=== PATIENT | female | born 1930 | race Caucasian/White ===

== ENCOUNTER 2019-01-14 18:20 | Inpatient (IN) ==
--- NOTE | 2019-01-14 19:14 | Diag Imaging Result Doc PS360 ---
EXAM: CHEST-1 VIEW 01/14/2019 HISTORY: PALPIATIONS TECHNIQUE: AP portable at 1902 COMMENT: There is cardiomegaly. There is blunting the costophrenic angles worse on the right side than on 01/12/2019. The inspiration is less optimal. There is ill-defined opacity in the right parahilar region which was not previously present. IMPRESSION: Worsened right pleural effusion. Questionable pneumonia right upper lobe. Electronically signed by Kings Flanagan 01/14/2019 7:12 PM
[2019-01-14 19:25] LABS: BASO# 0.06 X1000 (0.0-0.2); BASO% 0.5 % (0.0-0.8); EOS# 0.18 X1000 (0.0-0.7); EOS% 1.5 % (0.0-10.0); HEMATOCRIT 44.2 % (37.0-47.0); HEMOGLOBIN 14.4 g/dL (12.0-16.0); IMM GRAN# 0.04 X1000 (0.0-0.04); IMM GRAN% 0.3 % (0.0-0.5); LYMPH# 4.23 X1000 (1.2-3.4); LYMPH% 35.6 % (20.5-51.1); MCHC 32.6 g/dL (33-37); MCV 98.2 FL (81-99); MONO# 1.19 X1000 (0.11-0.59); MPV 10.5 FL (7.4-10.4); NEUT# 6.19 X1000 (1.4-6.5); NEUT% 52.1 % (42.2-75.2); PLT 255 X1000 (130-400); RDW 13.3 % (11.5-14.5); WBC 11.89 X1000 (4.8-10.8)
[2019-01-14] MEDS ORDERED: ROCEPHIN 1 GM in NS 50 ML IV ONE (19:25)
[2019-01-14 19:29] LABS: INR 1.03; PROTIME 14.3 Seconds (11.0-16.0); PTT 26.2 Seconds (22.3-41.8)
[2019-01-14] MEDS ORDERED: LOPRESSOR IV ONE (19:29)
[2019-01-14] MEDS ORDERED: ZITHROMAX 500 MG/NS 500 MG/250 ML IVPB IV SCH (19:30)
[2019-01-14 19:42] LABS: ALB/GLOB RATIO 1.8; ALBUMIN 4.1 g/dL (3.5-5.0); CALCIUM 9.9 mg/dL (8.8-10.2); CREATININE 1.1 mg/dL (0.5-0.9); TOTAL BILIRUBIN 0.47 mg/dL (0.20-1.00); TOTAL PROTEIN 6.4 g/dL (6.3-8.3)
[2019-01-14] MEDS ORDERED: NS 1,000 ML IV ONE ×2 (20:06→23:35)
[2019-01-14 20:48] LABS: URINE SOURCE CLEAN CATCH
[2019-01-14 20:51] LABS: BILIRUBIN URINE NEGATIVE (NEGATIVE); BLOOD URINE SMALL (NEGATIVE); COLOR YELLOW; GLUCOSE URINE NEGATIVE (NEGATIVE); KETONE URINE NEGATIVE (NEGATIVE); LEUKOCYTES URINE LARGE (NEGATIVE); NITRITE URINE NEGATIVE (NEGATIVE); PH URINE 5.5; PROTEIN URINE 50 mg/dL (NEGATIVE); TURBIDITY URINE HAZY (CLEAR); UROBILINOGEN URINE NORMAL (NORMAL)
[2019-01-14 20:53] LABS: UR EPITHELIAL CELLS <10 /HPF (<10); URINE BACTERIA NEGATIVE /HPF; URINE WBC TNTC /HPF (<10)
[2019-01-14 21:02] LABS: URINE YEAST NONE SEEN
[2019-01-14] MEDS ORDERED: HALDOL IM ONE (21:15)
[2019-01-14] MEDS ORDERED: ATIVAN IV ONE (22:05)
--- NOTE | 2019-01-14 22:14 | PROVIDER DOCUMENTATION ---
This chart was entered by Sherry Erickson Scribe, acting as scribe for Elvia Ardon MD. HPI-Respiratory General - General Chief Complaint: Shortness of Breath Stated Complaint: SOB Time Seen by Provider: 01/14/19 19:23 Source: patient Allergies/Adverse Reactions: Patient Allergies Allergy/AdvReac Type Severity Reaction Status Date / Time levofloxacin [From Levaquin] Allergy Unknown Verified 01/14/19 19:15 Home Medications: Home Medication List Medication Instructions Recorded Confirmed Last Taken Type Metoprolol [Lopressor] 50 mg PO DAILY 09/30/12 01/15/19 09/29/12 08:00 History Spironolactone 25 mg PO DAILY 09/30/12 01/15/19 09/29/12 08:00 History Aspirin 325 mg PO DAILY 01/15/19 01/15/19 01/14/19 09:00 History Losartan Potassium 1 tab PO DAILY 01/15/19 01/15/19 01/13/19 09:00 History SIMVAstatin [Zocor] 40 mg PO QHS 01/15/19 01/15/19 Unknown History - History of Present Illness-Resp Nature of Presenting Problem: 88yof presents to ED cc SOB for last 2 weeks that is worse today. Pt reports she can't catch her breath and it worsens with movement and laying flat. Pt keenan brooke is at bedside and reports pt saw her PCP/Dr. Robin last Saturday and was taken off her Lasix and then saw her again on Saturday and put back on 1/2 of Lasix. Daughter also reports pt did an Xray and blood work on Saturday. Pt reports she takes an aspirin daily. Pt has hx of NE and AFIB. Quality of Pain: reports: tightness Severity in ED: reports: moderate Onset/Duration: reports: last week Timing: reports: still present, constant, getting worse Cough Quality/Degree: reports: no cough Current Respiratory Medication Therapy: Initiated see nurses note Modifying Factors: worse with: exertion, deep breath, lying down Associated Symptoms: reports: shortness of breath Similar Symptoms Previously?: Yes Recently seen or treated by another doctor?: Yes (PCP/Dr. Robin) Review of Systems - Adult - REVIEW OF SYSTEMS - ADULT Constitutional: reports: see HPI, fatique. denies: chills, fever Eyes: reports: no symptoms reported Ears, Nose, Mouth & Throat: reports: no symptoms reported Cardiovascular: reports: see HPI, edema, irregular heart rate. denies: chest pain, palpitations, syncope Respiratory: reports: see HPI, shortness of breath. denies: cough, wheezing Gastrointestinal: reports: no symptoms reported Genitourinary: reports: no symptoms reported Musculoskeletal: reports: no symptoms reported Integumentary: reports: no symptoms reported Neurological: reports: no symptoms reported Psychiatric: reports: no symptoms reported Endocrine: reports: no symptoms reported Hematologic/Lymphatic: reports: no symptoms reported Allergic/Immunologic: reports: no symptoms reported All Other Systems: Reviewed and Negative Past History - Adult - PAST MEDICAL HISTORY-ADULT Review of Records: reports: Nursing Assessment Review, Medications Reviewed, Social history reviewed & non-contributory. Major Childhood Illnesses: reports: denies history Cardiovascular: reports: denies history Respiratory: reports: denies history Gastrointestinal: reports: denies history Obstetrical/Gynecological: reports: denies history Genitourinary: reports: denies history Musculoskeletal: reports: denies history Neurological: reports: denies history Endocrine/Immune: reports: denies history Other Conditions: reports: denies history - IMMUNIZATION STATUS Childhood Immunizations: See Nurse Assessment Flu Vaccine: See Nurse Assessment - FAMILY HISTORY Family History: reviewed, not pertinent - SOCIAL HISTORY Smoking: quit greater than 1 year Physical Exam-General - PHYSICAL EXAM-ADULT Initial Vital Signs Reviewed: Yes - CONSTITUTIONAL General Appearance: alert, mild distress, thin, other (uncomfortable appearing). negative: obtunded, combative - EYES Eyes: PERRL/EOMI, pink conjunctivae. negative: meningismus, pale conjunctivae, photophobia - HEAD, EARS, NOSE, MOUTH & THROAT HENMT: moist mucous membranes. negative: angioedema - RESPIRATORY Respiratory: chest non-tender, lungs clear, normal breath sounds, respiratory distress (mild), accessory muscle use. negative: crackles, rales, rhonchi, stridor, wheezing - CARDIOVASCULAR Cardiovascular: normal peripheral pulses, no gallop, no JVD, no murmur, tachycardia, irregularly irregular. negative: regular rate, rhythm, no edema, bradycardia - MUSCULOSKELETAL Back Exam: no vertebral tenderness, kyphosis Extremity: no calf tenderness, pedal edema ( to ankle, bilaterally, 1+). negative: erythema - SKIN Integumentary: warm/dry. negative: cyanosis, diaphoresis, jaundice - PSYCHIATRIC Psych/Mental Status: normal mood/affect, normal thought content, normal thought process, oriented x 3. negative: disoriented x 3, anxious, disheveled, depressed affect Progress - PLAN OF CARE/RESULTS Progress/Plan/Lab Results: 01/14/19 19:43 - Final Blood Orders Category Date Time Status Admit - [facility] Routine AdmDCTranf 01/15/19 00:50 Active Activity - Up with Assistance EVERY SHIFT NURSING Care 01/15/19 00:50 Active Apply Mechanical Device [QM] ORDERED Care 01/15/19 00:50 Active Cardiac Monitoring DIRECTED Care 01/14/19 18:33 Completed IV Insertion ORDERED Care 01/14/19 18:33 Completed Intake and Output-Strict Q 8-HR ASSESS Care 01/15/19 00:50 Active Misc. NRSG Communication Order DIRECTED Care 01/14/19 23:49 Completed Notify MD of + Sepsis Screen NOW Care 01/14/19 18:33 Completed Notify Physician As Ordered Care 01/14/19 18:33 Active Nursing- Assist w/ IS as order ORDERED Care 01/15/19 00:50 Active Resuscitation Status Routine Care 01/15/19 00:50 Ordered Saline Loc DIRECTED Care 01/15/19 00:50 Completed Turn, Cough and Deep Breathe Q4HR.AWAKE Care 01/15/19 00:50 Active Update & Confirm Home Medicati ROUTINE Care 01/14/19 23:35 Completed Vital Signs Order Q 4-HR ASSESS Care 01/15/19 00:50 Completed Z-Document. for Tele Applied ORDERED Care 01/15/19 00:51 Completed CHEST-1 VIEW [RAD] Stat Exams 01/14/19 18:33 Completed CTA [CT ANGIOGRM PULMONARY ARTERIES] [CT] Stat Exams 01/14/19 20:25 Completed ABG [RESP] Routine Lab 01/14/19 21:54 Completed BASIC METABOLIC PANEL [CHEM] Routine Lab 01/16/19 05:12 Received BLOOD CULTURE [BLDCUL] Stat Lab 01/14/19 19:43 Results CBC WITH DIFF [HEME] Routine Lab 01/16/19 05:12 Completed CBC WITH DIFF [HEME] Stat Lab 01/14/19 18:51 Completed CK PROFILE [SP CHEM] Stat Lab 01/14/19 18:50 Completed COMPREHENSIVE METABOLIC PANEL [CHEM] Stat Lab 01/14/19 18:50 Completed GRAM STAIN [BLDCUL] Stat Lab 01/14/19 19:43 Results LACTATE, PLASMA [CHEM] Lab 01/14/19 22:12 Completed LACTATE, PLASMA [CHEM] Lab 01/15/19 02:16 Completed LACTATE, PLASMA [CHEM] Q3H Lab 01/14/19 18:50 Completed PROTIME WITH INR [COAG] Stat Lab 01/14/19 18:50 Completed PTT [COAG] Stat Lab 01/14/19 18:50 Completed TROPONIN T Stat Lab 01/14/19 18:50 Completed URINALYSIS W/POSS RFLX CULT [URINALYSIS] Stat Lab 01/14/19 20:14 Completed URINE CULTURE [RM] Routine Lab 01/14/19 21:02 Results URINE MANUAL MICROSCOPIC [URINALYSIS] Stat Lab 01/14/19 20:14 Completed 0.9% Sodium Chloride Inj [Ns] 1,000 ml Med 01/14/19 23:35 Discontinued IV 75 mls/hr 0.9% Sodium Chloride Inj [Ns] 1,000 ml Med 01/14/19 20:06 Discontinued IV 999 mls/hr Acetaminophen [Tylenol] Med 01/15/19 00:50 Active 650 mg PO Q6H PRN PRN Albuterol 2.5MG/Ipratrop 0.5MG [Duoneb (A & A)] Med 01/15/19 01:00 Active 3 ml INH RTQ6H Aspirin Med 01/15/19 09:00 Active 300 mg PO DAILY Azithromycin 500 mg/Ns [Zithromax 500 mg/Ns] Med 01/14/19 19:30 Discontinued 500 mg in 250 ml IV Q24H CefTRIAXONE [Rocephin] 1 gm Med 01/14/19 19:25 Discontinued 0.9% Sodium Chloride Inj [Ns] 50 ml IV NOW CefTRIAXONE [Rocephin] 1 gm Med 01/15/19 09:00 Discontinued 0.9% Sodium Chloride Inj [Ns] 50 ml IV Q24H Furosemide [Lasix] Med 01/15/19 00:53 Discontinued 40 mg IV NOW ONE Haloperidol Lactate [Haldol] Med 01/14/19 21:15 Discontinued 5 mg IM NOW ONE Lorazepam [Ativan] Med 01/14/19 22:05 Discontinued 0.5 mg IV NOW ONE Lorazepam [Ativan] Med 01/15/19 00:49 Active 0.5 mg IV Q4H PRN PRN Metoprolol [Lopressor] Med 01/14/19 19:29 Discontinued 5 mg IV NOW ONE Metoprolol [Lopressor] Med 01/15/19 09:00 Discontinued 50 mg PO DAILY SIMVAstatin [Zocor] Med 01/15/19 21:00 Active 40 mg PO QHS Spironolactone [Aldactone] Med 01/15/19 09:00 Discontinued 25 mg PO DAILY Valsartan [Diovan] Med 01/15/19 09:00 Discontinued 40 mg PO DAILY Aerosol Treatments Routine Ot 01/15/19 00:53 Completed Aerosol Treatments Stat Ot 01/15/19 00:53 Completed Incentive Spirometer Q4HR.AWAKE Ot 01/15/19 01:00 Completed Incentive Spirometer Q4HR.AWAKE Ot 01/15/19 05:00 Completed Incentive Spirometer Q4HR.AWAKE Ot 01/15/19 09:00 Completed Incentive Spirometer Q4HR.AWAKE [facility] 01/15/19 13:00 Completed Incentive Spirometer Q4HR.AWAKE Ot 01/15/19 17:00 Completed Incentive Spirometer Q4HR.AWAKE Ot 01/15/19 21:00 Completed Incentive Spirometer Q4HR.AWAKE [facility] 01/16/19 01:00 Completed Oxygen Device Routine [facility] 01/15/19 00:50 Completed Oxygen Device Stat [facility] 01/14/19 18:33 Completed Telemetry [OM.EQ] Routine Ot 01/15/19 00:50 Active Transfer/Admit Order [TRANSFER] Routine Transfer 01/15/19 00:54 Completed Result Diagrams: 01/16/19 05:12 01/15/19 10:05 - EKG 1 Time of EKG reading by physician:: 18:30 EKG Read and Signed by:: Silver Ferguson EKG Interpretation (*Must complete 3 of following elements*): Abnormal (poor data quality, interuption may be adversely affected) Rate: 117 Rhythm: Atrial Fibrillation with rapid ventricular response [place]: left QRS: LBB - XRAY 1 XRAY Study: Chest Impression: See EMR Report ( IMPRESSION: Worsened right pleural effusion. Questionable pneumonia right upper lobe. Electronically signed by Kings Flanagan 01/14/2019 7:12 PM 01/14/191911 Interpreting Physician: Kings Flanagan MD Dictated Date/Time: 01/14/191910 cc: Silver Ferguson MD; Radha Robin MD) - CONSULTS/PCP/HOSPITALIST Notification #1 *Consult/PCP/Hospitalist*: Dr. Ford Time Discussed: 18:44 Consult Disposition: other (Dr. Ferguson consulted with Dr. Ford and sent the pt EKG for him to [facility]. Dr. Ford stated pt has no STEMI but to admit her to rule out.) #2 Consult: Dr. Daniel Time Discussed: 21:25 Consult Disposition: other (get ABG and call back with results) Departure - Departure Date of Disposition Decision: 01/14/19 Time of Disposition Decision: 20:30 DIAGNOSIS: Pneumonia, Pleural effusion, Respiratory distress, Hyperventilating, Chronic kidney disease Disposition: ADMITTED INPATIENT 09 Certified Medical Emergency: Emergent Condition: Stable - Critical Care Note This patient required my direct & personal management of CC.: Yes Total Time (mins): 65 Critical Care Statement: This patient required my direct personal management to treat or rule out processes, the absence of which, could potentiallly result in sudden, clinically significant life or limb threatening deterioration. Attestation - Physician/ JOVANY Attestation Patient care was provided by Advanced Practice Provider:: No The physician spent face to face time with patient:: Yes Advanced Practice Provider documentation review:: Supervising physician onsite and consulted in the evaluation and care of this patient. The physician did have a face to face encounter with the patient. This chart was documented by the indicated scribe, (Sherry Erickson Scribe) and accurately reflects the services I performed and decisions made by me, Elvia Ardon MD, as attested by the provider's signature.
[2019-01-14 22:23] LABS: ALLEN TEST YES; BE -5.4 mmoll (-3.0-3.0); BLOOD TYPE ARTERIAL; HCO3-(ACT) 20.7 mmoll (20.0-26.0); METHB 1.2 % (0.0-1.5); O2HB 97.3 % (95.0-99.0); PO2(98.6) 192 mmHg (60-100); SAMPLE BLOOD; SAO2 100.2 % (95.0-100.0); THB 12.1 g/dL (11.5-17.4); pH(98.6) 7.53 (7.35-7.45)
[2019-01-14 22:35] LABS: MODALITY CANNULA; PCO2(98.6) 18 mmHg (35-45)
[2019-01-15] MEDS: DUONEB (A & A) INH SCH ×5 (00:01→20:20)
[2019-01-15] MEDS ORDERED: LASIX IV ONE ×2 (00:53→09:41)
--- NOTE | 2019-01-15 01:16 | HISTORY AND PHYSICAL ---
CHIEF COMPLAINT: Shortness of breath. HISTORY OF PRESENT ILLNESS: This is a very anxious 88-year-old female who has had progressive shortness of breath over the last 2 weeks. States that she saw her PCP, Dr. Radha Robin, last Saturday and was taken off her Lasix and saw her again Saturday and was put back on her Lasix. Had x-ray and blood work done Saturday which was presumably normal. At any rate, she today became extremely short of breath, felt as if she could not lie flat. She denied any type of chest pain. However, she is, again, very anxious as if she cannot sit still on examination, very uncomfortable appearing. She has a past medical history that includes atrial fibrillation, hypertension, hyperlipidemia, coronary artery disease. She is status post CABG and AAA repair. Her vital signs are stable and laboratory data is grossly normal other than her hyperventilating and blowing off her CO2 which has resulted in respiratory alkalosis. She is oxygenating well, but again, worrisome that she looks very uncomfortable. Chest x-ray shows a possible right upper lobe pneumonia. There is a worsened right pleural effusion. CTA of the chest is pending to rule out any type of dissection. If this is the case, the patient will need to be transferred to a tertiary center. Otherwise, the patient will be admitted for further evaluation and treatment. PAST MEDICAL HISTORY: See HPI. PREVIOUS SURGICAL HISTORY: CABG, cataract surgery and knee surgery, cholecystectomy and AAA repair. SOCIAL HISTORY: Lives with her daughter. Smoked up until 15 years ago. No alcohol or illicit drugs. FAMILY HISTORY: Father from a CVA at age 76. Mother when the patient was 2 months old so unsure what type of family history she had. They deny any other chronic illnesses within the family. ALLERGIES: Levaquin. HOME MEDICATIONS: A list of home medications could not be reconciled at this time. The nursing staff is trying to work with the family to get a list of home medications. They did not know the names of medications at the time of interview. REVIEW OF SYSTEMS: Fourteen-point review of systems conducted with the patient. She complains of having what she feels like is gas pressure. She feels as if she needs to belch and is short of breath with PND and orthopnea. Also dyspnea on exertion. All other pertinent positives listed above in the HPI. All other systems were reviewed and found to be negative. PHYSICAL EXAMINATION: VITAL SIGNS: Temperature 97.8, pulse 71, blood pressure 141/115, oxygen saturation 98% on 2 L nasal cannula. GENERAL: An 88-year-old female very anxious sitting on the side of the ER stretcher, is alert and oriented times 3, answers all questions appropriately. Family at bedside very supportive. Appears to be in moderate distress. HEENT: Head is atraumatic, normocephalic. Pupils equal, round, reactive to light. Extraocular eye movements intact. Sclerae are anicteric. Conjunctiva is pink. Oral mucosa is moist. NECK: Supple. No JVD. No thyromegaly. Trachea is midline. No cervical lymphadenopathy. CARDIOVASCULAR: S1, S2 appreciated. No murmurs, gallops or rubs. She is having some tachypnea and mild accessory muscle use. She is irregularly irregular. ABDOMEN: Soft, nondistended, nontender. Bowel sounds present all 4 quadrants, normoactive. No pulsatile mass. No organomegaly. EXTREMITIES: No clubbing, cyanosis. One-plus nonpitting edema to bilateral ankles. Two-plus pedal pulses. GENITOURINARY: No bladder distention. Otherwise deferred. NEUROLOGICAL: Alert and oriented times 3. Cranial nerves 2 through 12 grossly intact. DIAGNOSTIC DATA: CTA of the chest is pending. Chest x-ray shows possible right upper lobe pneumonia, worsened right pleural effusion. LABORATORY DATA: WBC 11.89. Hemoglobin 14.4. Hematocrit 44.1. Platelet count 255. ABG: pH 7.53, PCO2 of 18, PO2 of 92, bicarbonate 20.7. This was on 3 L nasal cannula. Sodium 137. Potassium 5. Chloride 99. Carbon dioxide 20. BUN 19. Creatinine 1.1. Glucose 174. Urine: Leukocyte esterase positive, too numerous to count WBCs. ASSESSMENT AND PLAN: 1. Shortness of breath of unknown etiology at this point. CTA to rule out pulmonary embolism or dissection as patient is, again, very uncomfortable seeming. Otherwise may just be a community- acquired pneumonia with a right pleural effusion. She has been treated with Rocephin and azithromycin in the emergency room which will be continued on the medical floor. Obviously, if the patient has any type of dissection she will need to be transferred to a tertiary center. If patient has a pulmonary embolism, she will be treated accordingly. 2. Atrial fibrillation with rapid ventricular rate, now back to normal rate. We will continue patient's metoprolol once dosage is put in. Patient was given IV metoprolol in the emergency room 5 mg which slowed her rate back into the 70s and 80s. 3. Respiratory alkalosis, aware. 4. Nonsymptomatic urinary tract infection. Patient will already be on IV antibiotics. However, this will likely not need treating otherwise. 5. Hypertension and hyperlipidemia. We will restart home medications when appropriate. Further recommendations per patient clinical course. Dictated by ALY Palomares for Zenaida Daniel MD cc: ALY Palomares MD Luis N. Villanueva, MD Sarah E. Styers, MD Independent exam and assessment done by me a bedside together with IRISH MOSS BLEACHER. Discussed plan of care with pt,family and IRISH MOSS BLEACHER. CTA was negative for PE. Will treat pt has COPD exacerbation. Her exam was not impressive except for few scattered wheezes. She appeared to be anxious and did respond to mild anxiolytic treatment. Family requested that she be made a DNR pt. SHAMIKA
[2019-01-15] MEDS: ATIVAN IV PRN (01:57)
[2019-01-15 04:52] LABS: URINE SOURCE CLEAN CATCH
[2019-01-15 05:12] LABS: BILIRUBIN URINE NEGATIVE (NEGATIVE); BLOOD URINE TRACE (NEGATIVE); COLOR YELLOW; GLUCOSE URINE NEGATIVE (NEGATIVE); KETONE URINE NEGATIVE (NEGATIVE); TURBIDITY URINE CLEAR (CLEAR); UR EPITHELIAL CELLS <10 /HPF (<10); URINE BACTERIA NEGATIVE /HPF; URINE RBC <10 /HPF (<10); URINE WBC <10 /HPF (<10)
[2019-01-15 05:13] LABS: LEUKOCYTES URINE NEGATIVE (NEGATIVE); NITRITE URINE NEGATIVE (NEGATIVE); PROTEIN URINE 100 mg/dL (NEGATIVE); UROBILINOGEN URINE NORMAL (NORMAL)
[2019-01-15 05:16] LABS: SP GRAVITY URINE 1.015
--- NOTE | 2019-01-15 06:56 | Diag Imaging Result Doc PS360 ---
EXAM: CT ANGIOGRM PULMONARY ARTERIES 01/14/2019 HISTORY: SOB TECHNIQUE: This exam was performed using automated exposure control, adjustment of mA or kV according to patient size, and/or use of iterative reconstruction technique. COMMENT: 3-D MIPS were performed. There are no previous studies. There is considerable beam hardening artifact as well as some motion. There are no apparent filling defects in the pulmonary arteries. The aorta is not well opacified. There is no evidence of dilatation of the thoracic aorta. The left ventricle and left atrium are enlarged. There are bilateral pleural effusions. There is no evidence of significant adenopathy. There is interstitial opacity present in the right lower lobe peripherally there is a small nodule adjacent to the major fissure in the right lower lobe on image 77 measuring 6 mm in diameter. There are some calcified granulomata in the right lower lobe and calcified hilar nodes on the right. There is emphysematous change in the upper lung zones. There is some ill-defined opacity present in the anterior left upper lobe as well as a lobulated nodule on image 51 measuring 9 mm in diameter. This is not calcified. There is an apparent abdominal aortic graft. There is right nephrolithiasis. There is a fairly large amount of stool seen in the splenic flexure of the colon. There are spondylotic changes in the thoracic spine. IMPRESSION: No evidence of pulmonary emboli. Cardiomegaly. Mild pulmonary edema. Granulomata and nonspecific pulmonary nodules as described above. COPD. Electronically signed by Kings Flanagan 01/15/2019 6:54 AM
--- NOTE | 2019-01-15 08:47 | EKG Report ---
Test Performed on : 01/14/2019 6:28:42 PM Test Reason : ED. NO EKG ORDER FOR MUSE Blood Pressure : / mmHG Vent. Rate : 117 BPM Atrial Rate : 094 BPM P-R Int : 000 ms QRS Dur : 146 ms QT Int : 360 ms P-R-T Axes : 000 -33 129 degrees QTc Int : 502 ms Poor data quality, interpretation may be adversely affected Atrial fibrillation. with rapid ventricular response. with premature ventricular or aberrantly conduc stacey complexes. Left axis deviation Left bundle branch block Abnormal ECG When compared with ECG of 01-JUN-2011 10:10, Atrial fibrillation. has replaced Sinus rhythm. Vent. rate has increased BY 66 BPM Left bundle branch block is now present Criteria for Lateral infarct are no longer present Unconfirmed Result
[2019-01-15] MEDS ORDERED: LOPRESSOR PO SCH (09:00)
[2019-01-15] MEDS ORDERED: DIOVAN PO SCH (09:00)
[2019-01-15] MEDS ORDERED: ALDACTONE PO SCH (09:00)
[2019-01-15] MEDS ORDERED: ROCEPHIN 1 GM in NS 50 ML IV SCH (09:00)
[2019-01-15] MEDS: ASPIRIN PO SCH (09:39)
[2019-01-15 10:13] LABS: HEMATOCRIT 42.1 % (37.0-47.0); HEMOGLOBIN 13.5 g/dL (12.0-16.0); MCH 32.5 PG (27-31); MCHC 32.1 g/dL (33-37); MCV 101.2 FL (81-99); MPV 10.4 FL (7.4-10.4); RBC 4.16 XMIL (4.2-5.4); RDW 13.3 % (11.5-14.5); WBC 19.42 X1000 (4.8-10.8)
[2019-01-15 10:28] LABS: BE -6.1 mmoll (-3.0-3.0); BLOOD TYPE ARTERIAL; HCO3-(ACT) 20.1 mmoll (20.0-26.0); PCO2(98.6) 30 mmHg (35-45); PO2(98.6) 85 mmHg (60-100); SAMPLE BLOOD; THB 14.1 g/dL (11.5-17.4); pH(98.6) 7.38 (7.35-7.45)
[2019-01-15 10:29] LABS: ALLEN TEST NO; METHB 1.3 % (0.0-1.5); O2(CT) 18.9 mL/dL (15.0-23.0); O2HB 95.2 % (95.0-99.0)
[2019-01-15 10:30] LABS: MODALITY CANNULA
[2019-01-15 10:40] LABS: CALCIUM 8.9 mg/dL (8.8-10.2); CREATININE 1.4 mg/dL (0.5-0.9); POTASSIUM 4.1 mmol/L (3.5-5.1)
[2019-01-15] MEDS ORDERED: LANOXIN IV ONE (11:18)
--- NOTE | 2019-01-15 12:42 | EKG Report ---
Test Performed on : 01/15/2019 12:36:11 PM Test Reason : afib Blood Pressure : / mmHG Vent. Rate : 103 BPM Atrial Rate : 103 BPM P-R Int : 000 ms QRS Dur : 154 ms QT Int : 424 ms P-R-T Axes : 000 010 142 degrees QTc Int : 555 ms Wide QRS rhythm. , suspect atrial flutter Left bundle branch block Abnormal ECG When compared with ECG of 14-JAN-2019 18:28, (Unconfirmed) Wide QRS rhythm. , suspect atrial fultter, has replaced Atrial fibrillation. Confirmed by Darrick Colin MD ([id number]) on 01/18/2019 11:44:21 AM
[2019-01-15] MEDS: MAXIPIME 1 GM in NS 50 ML IV SCH ×2 (12:51→20:39)
[2019-01-15] MEDS: ZYVOX 600 MG/D5W 600 MG/300 ML IVPB IV SCH ×2 (15:04→20:39)
--- NOTE | 2019-01-15 15:48 | ECHO REPORT ---
ORDER DATE: 01/15/2019 ECHOCARDIOGRAPHIC MEASUREMENTS: 1. Septal thickness 0.7. 2. Left ventricular internal diameter diastole 5.7. 3. Posterior wall thickness 0.9. 4. Left atrium 5.5. 5. Aortic root 3.4. SUMMARY: 1. Fair quality study. 2. Minimal sclerosis of trileaflet valve demonstrated with adequate aortic valve opening evident. Peak gradient across the aortic valve is 17 mmHg. There is mild aortic regurgitation. Mitral and tricuspid valves are without evidence of structural abnormality, while pulmonic valve is not well visualized. There is moderate mitral regurgitation and moderate tricuspid regurgitation. The estimated systolic PA pressure by Doppler is 50 mmHg suggesting moderate pulmonary hypertension. The aortic root is normal in size. 3. Normal left ventricular dimensions suggested. Estimated left ventricular ejection fraction approximately 40%. There is hypokinesis of the basal inferolateral region left ventricle. There is also paradoxical septal motion probably related to interventricular conduction abnormality. Left atrium is moderate to severely enlarged. The right atrium is mildly enlarged. The right ventricle is normal in size with grossly preserved right ventricular systolic function. 4. No pericardial effusion. 5. Appearance of inferior vena cava suggests normal central venous pressure. cc: MD Augustus Love MD
[2019-01-15 17:01] LABS: TSH 4.08 uIUmL (0.27-4.20)
[2019-01-15 17:16] LABS: FREE T4 1.93 ng/dL (0.93-1.70)
[2019-01-15] MEDS: LOPRESSOR PO SCH (20:38)
[2019-01-15] MEDS: TYLENOL PO PRN (20:38)
[2019-01-15] MEDS: ZOCOR PO SCH (20:39)
[2019-01-16] MEDS: DUONEB (A & A) INH SCH ×4 (03:38→19:33)
[2019-01-16] MEDS: LOPRESSOR PO SCH ×3 (03:57→20:33)
[2019-01-16 03:58] LABS: ALLEN TEST YES; BE 3.2 mmoll (-3.0-3.0); BLOOD TYPE ARTERIAL; HCO3-(ACT) 27.4 mmoll (20.0-26.0); METHB 1.1 % (0.0-1.5); O2HB 97.2 % (95.0-99.0); PCO2(98.6) 37 mmHg (35-45); PO2(98.6) 135 mmHg (60-100); SAMPLE BLOOD; SAO2 99.7 % (95.0-100.0); THB 12.3 g/dL (11.5-17.4); pH(98.6) 7.47 (7.35-7.45)
[2019-01-16 03:59] LABS: MODALITY CANNULA
[2019-01-16 05:55] LABS: BASO# 0.02 X1000 (0.0-0.2); BASO% 0.1 % (0.0-0.8); EOS# 0.04 X1000 (0.0-0.7); EOS% 0.3 % (0.0-10.0); HEMATOCRIT 38.6 % (37.0-47.0); HEMOGLOBIN 12.5 g/dL (12.0-16.0); IMM GRAN# 0.04 X1000 (0.0-0.04); IMM GRAN% 0.3 % (0.0-0.5); LYMPH# 1.51 X1000 (1.2-3.4); LYMPH% 10.9 % (20.5-51.1); MCH 31.9 PG (27-31); MCHC 32.4 g/dL (33-37); MCV 98.5 FL (81-99); MONO# 0.73 X1000 (0.11-0.59); MONO% 5.3 % (1.7-9.3); MPV 10.5 FL (7.4-10.4); NEUT# 11.54 X1000 (1.4-6.5); NEUT% 83.1 % (42.2-75.2); PLT 148 X1000 (130-400); RBC 3.92 XMIL (4.2-5.4); RDW 13.2 % (11.5-14.5); WBC 13.88 X1000 (4.8-10.8)
[2019-01-16 06:35] LABS: CALCIUM 8.6 mg/dL (8.8-10.2); CREATININE 1.7 mg/dL (0.5-0.9); POTASSIUM 3.3 mmol/L (3.5-5.1)
--- NOTE | 2019-01-16 06:59 | CARDIOLOGY CONSULTATION ---
DATE: 01/15/2019 CONSULTATION REQUESTED BY: Hospitalist service. REASON FOR CONSULTATION: Dyspnea, congestive heart failure, tachycardia. HISTORY: Mrs. Ponce is an 88-year-old female, patient of mine who I saw last time in my office on 10/16/2018. At that time, she was complaining of feeling short of breath. That has not changed very much for a while. However, for the past 2 weeks, she noted increasing dyspnea. This got progressively worse 2 days ago, and then the family decided to bring her to the emergency room. Upon presentation they did a chest x-ray that shows worsened right pleural effusion, questionable pneumonia right upper lobe. EKG shows atrial fibrillation with an IVCD or wide complex type of pattern. There is a leftward axis. At any rate, they did a blood gas that showed that her pCO2 was 18, PO2 192, pH 7.53. Her BUN was 19, creatinine 1.1, carbon dioxide 20. Her plasma lactate was 4.6. ProBNP was greater than 35,000. All that suggested that she was in decompensated heart failure. She was admitted for observation. This morning, she is feeling somewhat better. She has been given Lasix. The patient was also in some sort of atrial fibrillation rapid response and that appears to be better. They have put her on ceftriaxone. PAST MEDICAL HISTORY: Positive for coronary bypass surgery in the past. She has severe coronary heart disease. She has COPD. She has hyperlipidemia. She had a normal EKG in the past with sinus bradycardia and left bundle branch block. I do not have any definite indication that she has had any recent ischemic event. Her last stress test is from 2008. Last coronary intervention was in 2007. Last echogram that we have on record from 2012 showed preserved ejection fraction. There has been no recent bout of atrial fibrillation on her. Her history is also positive for hyperlipidemia. PAST SURGICAL HISTORY: 1. Cholecystectomy. 2. Abdominal aneurysm. 3. Knee surgery. SOCIAL HISTORY: She is , retired. She has grown-up children. She lives with her daughter daily. FAMILY HISTORY: Father had a stroke. HOME MEDICATIONS: At the time of this admission included 1. Aspirin 325 daily. 2. Losartan 25 daily. 3. Simvastatin 40 mg daily. 4. Metoprolol 50 mg daily. ALLERGIES: She is allergic to Levaquin. REVIEW OF SYSTEMS: Her functional status has declined sharply over the past few months. She has not been very active at home. She follows with Dr. Radha Robin in [place]. She was seen recently and they made changes to her diuretics because blood pressure was kind of low. Her spironolactone was, I believe, discontinued because of electrolytes being out of range I believe. PHYSICAL EXAMINATION: Vital Signs: At this time, blood pressure is 113/79, pulse 90, temperature 91 degrees, respirations 22. General: She is awake, alert, oriented, in no distress. HEENT: Unremarkable. Chest: Diffusely diminished breath sounds. Heart: Heart sounds are irregularly irregular. No definite gallop or murmur. She has sternal wound scar. Abdomen: Nontender. Extremities: Show decreased pulses. No peripheral edema. Neurologic: Elderly, frail. Her body mass index is 18.6, indicating that she is under nourished. LABORATORY DATA: Her blood work most recent one, white cell count 19,420, hemoglobin 13.5, hematocrit is 42.1. Sodium 141, potassium 4.1, BUN 26, creatinine 1.4. Her C-reactive protein is 17.73. Free T4 is 1.93. TSH 4.08. Question of hyperthyroidism, I guess. She is not taking any thyroid supplements. IMPRESSION: 1. Patient who presents with seemingly decompensation of congestive heart failure. This may relate to development of atrial fibrillation, rapid response. 2. Severe coronary heart disease, previous coronary bypass surgery. 3. Stable angina pectoris pattern in the recent past. 4. Chronic obstructive pulmonary disease. 5. Hyperlipidemia. 6. History of hypertension. 7. Undernourished, low body mass index. 8. General frailty, poor functional status. RECOMMENDATION: We will give gentle diuresis. We will observe. Keep her on low-dose digoxin and probably low-dose beta brigida to try to optimize her rhythm. We will see how she does over the course of the next few days. Given her advanced age and her frail status, I fully agree with a DNR status. We will see how things evolve. We will be following her. cc: Chuy Mcleod MD
--- NOTE | 2019-01-16 07:15 | Diag Imaging Result Doc PS360 ---
EXAM: CHEST-PORTABLE 01/16/2019 HISTORY: dyspnea TECHNIQUE: AP portable at 0619 COMMENT: There is blunting of both costophrenic angles particularly the left. The heart size is enlarged. There is slightly increased interstitial markings. There has been some improvement in the opacification of the right upper lobe since the previous study of 01/14/2019. IMPRESSION: Slightly improved pulmonary edema. Bilateral pleural effusions and cardiomegaly. Electronically signed by Kings Flanagan 01/16/2019 7:13 AM
--- NOTE | 2019-01-16 09:28 | PULMONOLOGY CONSULTATION ---
DATE: 01/16/2019 REQUESTING PHYSICIAN: Dr. Montalvo. REASON FOR CONSULTATION: Respiratory failure. HISTORY OF PRESENT ILLNESS: Ms. Ponce is an 88-year-old white female with a greater than 50 pack year history for tobacco who has been on Lasix for fluid retention by her primary care physician. Lasix was stopped approximately 2 weeks ago after her labs were reviewed. The patient was seen earlier this week and her Lasix was restarted, but her shortness of breath continued to progress. The patient presented to the hospital with increasing shortness of breath. She is noted to be in atrial fibrillation and her oxygen saturation was 71%. She was placed on supplemental oxygen. A CT pulmonary angiogram was performed which reveals significant emphysema, cardiomegaly, trace right pleural effusion. Echocardiogram was performed which revealed moderate pulmonary hypertension, moderate mitral regurgitation, mild aortic regurgitation, and a left ventricular ejection fraction of 40%. PAST MEDICAL HISTORY: 1. Emphysema/chronic obstructive pulmonary disease as indicated on CT scan, although the patient reports she has never been told that she had chronic obstructive pulmonary disease. 2. Status post coronary artery bypass grafting. 3. Atrial fibrillation. 4. Status post cholecystectomy. 5. Status post knee surgery. 6. Hypertension. 7. Dyslipidemia. REVIEW OF SYSTEMS: As noted in HPI. PHYSICAL EXAMINATION: General: Reveals a frail, chronically ill-appearing white female who currently appears comfortable and in no distress. Vital Signs: Blood pressure 114/54, heart rate 98, respiratory rate 18, oxygen saturation 100%. HEENT: Pupils are equal and reactive. Oropharynx is clear. Neck: Supple. Chest: Reveals prolonged expiratory phase with crackles in the lung bases. Cardiac: S1, S2. Irregular rhythm. Abdomen: Soft. Extremities: Reveal trace peripheral edema. LABORATORIES: Not listed in the HPI. Sodium 141, potassium 4.1, chloride 100, bicarbonate 17, BUN 26, creatinine 1.4. ProBNP elevated at 35,000. Arterial blood gas reveals a pH of 7.38, pCO2 of 30, PO2 of 85 with a lactate of 5.2. Urinalysis is negative for UTI this morning but UA yesterday revealed too numerous to white blood cell. IMPRESSION: An 88-year-old with hypoxemic respiratory failure, chronic obstructive pulmonary disease /emphysema, extensive tobacco history, coronary artery disease, small pleural effusion, systolic heart failure, multiple valvular abnormalities, pulmonary edema, marked elevation and proBNP. DISCUSSION: An 88-year-old with respiratory failure most likely due to a combination of both heart failure (systolic and multi valvular) and emphysema/chronic obstructive pulmonary disease. RECOMMENDATIONS: 1. Continue oxygen for hypoxemic respiratory failure. Anticipate the need for oxygen at the time of discharge. 2. Gentle diuresis. 3. Overall prognosis is guarded to poor. Agree with current resuscitation status. cc: Augustus Vivas MD
[2019-01-16] MEDS: ASPIRIN PO SCH (09:36)
[2019-01-16] MEDS: MAXIPIME 1 GM in NS 50 ML IV SCH ×2 (09:36→20:34)
[2019-01-16] MEDS: MEGACE LIQUID PO SCH ×2 (09:37→20:34)
[2019-01-16] MEDS: ZYVOX 600 MG/D5W 600 MG/300 ML IVPB IV SCH ×2 (09:37→20:34)
[2019-01-16] MEDS: XANAX PO PRN ×2 (11:44→21:17)
--- NOTE | 2019-01-16 16:33 | Diag Imaging Result Doc PS360 ---
EXAM: US RENAL 2 (RETROPER) COMPLETE INDICATION: coreen/arf TECHNIQUE: COMPARISON: None. FINDINGS: There is a 2.9 cm simple cyst at the upper pole the left kidney and a 1.3 cm simple cyst at the mid right kidney. The renal cortical echotexture appears mildly increased bilaterally, which is a nonspecific indicator of medical renal disease. No solid renal mass can be identified. There is no evidence of hydronephrosis. The left kidney measures 8 cm and the right kidney measures 10 cm in the greatest longitudinal axes. The left renal cortex measures up to 0.7 cm in the right renal cortex measures up to 0.9 cm in thickness. The urinary bladder was not imaged. IMPRESSION: Mildly increased renal cortical echotexture, which is a nonspecific indicator of medical renal disease. Electronically signed by Indra Hollins 01/16/2019 4:31 PM
[2019-01-16 17:27] LABS: URINE SOURCE CATH
[2019-01-16 17:30] LABS: BILIRUBIN URINE NEGATIVE (NEGATIVE); BLOOD URINE SMALL (NEGATIVE); COLOR YELLOW; GLUCOSE URINE NEGATIVE (NEGATIVE); KETONE URINE NEGATIVE (NEGATIVE); LEUKOCYTES URINE SMALL (NEGATIVE); NITRITE URINE NEGATIVE (NEGATIVE); PH URINE 5.5; PROTEIN URINE 30 mg/dL (NEGATIVE); SP GRAVITY URINE 1.018; TURBIDITY URINE CLEAR (CLEAR); UR EPITHELIAL CELLS <10 /HPF (<10); URINE BACTERIA NEGATIVE /HPF; URINE RBC <10 /HPF (<10); URINE WBC <10 /HPF (<10); UROBILINOGEN URINE NORMAL (NORMAL)
[2019-01-16] MEDS ORDERED: POTASSIUM CHLORIDE 20% LIQUID PO ONE (17:34)
[2019-01-16 17:57] LABS: UR PROT RANDOM 28.7 mg/dL
[2019-01-16 17:58] LABS: UR CREAT RANDOM 66.8 mg/dL (11-20); UR SODIUM < 10 mmoll; UR UREA NITROGEN RANDOM 569 mg/dL
--- NOTE | 2019-01-16 19:31 | CARDIOLOGY PROGRESS NOTE ---
DATE: 01/16/2019 CHIEF COMPLAINT: Shortness of breath and irregular heartbeat. SUBJECTIVE: Ms. Ponce is feeling better today. Her heart rate is better controlled. She is not as tired and weak as she looked yesterday. OBJECTIVE: Vital Signs: Blood pressure 123/66, temperature 97.3, pulse 75, respirations 15. General: She is awake, in no distress. She is elderly and frail looking. Not confused, just weak. HEENT: Unremarkable. Chest: Diminished breath sounds diffusely. Cardiovascular: Heart sounds irregularly irregular. Abdomen: Nontender. Extremities: Show no edema. Neurologic: Follows commands. Moves all 4 extremities. DIAGNOSTIC DATA: Echocardiogram done yesterday shows an ejection fraction of 40%. Chest x-ray done today shows slightly improved pulmonary edema, bilateral pleural effusions, cardiomegaly. Renal ultrasound shows mildly increased renal cortical echotexture, indicative of medical renal disease. LABORATORY DATA: Her sodium is 143, potassium 3.3, BUN 33, creatinine 1.7. IMPRESSION: 1. Patient who has congestive heart failure, systolic and diastolic. 2. Atrial fibrillation with rapid response. 3. Coronary heart disease with previous bypass surgery 4. Frailty, elderly age. 5. Undernourished. 6. History of hypertension. 7. History of hyperlipidemia. 8. Chronic obstructive pulmonary disease. RECOMMENDATIONS: We will continue supportive measures with current diuretics as well as digoxin and beta blockers. Her prognosis is certainly guarded, given her general frailty and her advanced age and multiple medical problems. cc: Chuy Mcleod MD
[2019-01-16] MEDS: ZOCOR PO SCH (20:35)
[2019-01-16] MEDS: ATIVAN IV PRN (22:30)
[2019-01-16] MEDS: TYLENOL PO PRN (22:30)
[2019-01-17] MEDS: DUONEB (A & A) INH SCH ×4 (03:02→19:17)
--- NOTE | 2019-01-17 03:27 | PROGRESS NOTE ---
DATE: 01/16/2019 SUBJECTIVE: The patient is sitting at the edge of the bed. She states that she has no appetite. She also states that she still feels short of breath. OBJECTIVE: Vital Signs: Temperature 97.3 degrees, blood pressure 123/66, heart rate 74, respirations 15, O2 saturation is 100% on 4 L nasal cannula. General: This is a chronically ill- appearing female, sitting at the edge of the bed in no acute distress. Heart: S1, S2 normal. Regular rate and rhythm. Lungs: Diminished breath sounds bilaterally. No wheezing, no rales. Abdomen: Positive bowel sounds. Soft, nontender, nondistended. Extremities: No edema, no cyanosis. Neurologic: The patient is awake and alert. LABORATORY: White blood cell count 13, hemoglobin 12, hematocrit 38, platelets 14,8000. Sodium 143, potassium 3.3, chloride 101, CO2 of 27, BUN 33, creatinine 1.7, glucose 97. ASSESSMENT AND PLAN: 1. Acute hypoxemic respiratory failure. Multifactorial. The patient has severe chronic obstructive pulmonary disease as well as heart failure. 2. Acute on chronic systolic congestive heart failure exacerbation. The patient responded well to diuretic therapy yesterday. We will await further recommendations from the garment supervisor today. 3. Severe chronic obstructive pulmonary disease. Aware. Continue with supplemental oxygen and bronchodilator therapy. 4. Acute kidney injury on chronic kidney disease. Urine studies have been ordered as well as a renal ultrasound. The patient did have exposure to contrast. We will monitor the patient's urine output closely. We will also consult with the theater set production designer. 5. Severe protein-calorie malnutrition. We will start the patient on Megace given her poor appetite. We will also consult with the dietitian. 6. Paroxysmal atrial fibrillation. The patient's heart rate is under better control today. Continue on the current regimen. 7. Anxiety disorder. Continue on Xanax. 8. Disposition. The patient is currently a DNR level 1. We will also consult with Palliative Care to discuss goals of care. cc: Gisselle Montalvo MD
[2019-01-17] MEDS: LOPRESSOR PO SCH ×3 (04:34→20:12)
[2019-01-17] MEDS: XANAX PO PRN ×2 (04:55→22:05)
[2019-01-17 05:55] LABS: HEMATOCRIT 40.1 % (37.0-47.0); HEMOGLOBIN 13.1 g/dL (12.0-16.0); MCH 32.3 PG (27-31); MCHC 32.7 g/dL (33-37); MPV 10.9 FL (7.4-10.4); RBC 4.05 XMIL (4.2-5.4); RDW 13.3 % (11.5-14.5); WBC 11.74 X1000 (4.8-10.8)
[2019-01-17 06:29] LABS: ALB/GLOB RATIO 1.4; ALBUMIN 3.2 g/dL (3.5-5.0); CALCIUM 8.9 mg/dL (8.8-10.2); CREATININE 1.5 mg/dL (0.5-0.9); POTASSIUM 3.7 mmol/L (3.5-5.1); TOTAL BILIRUBIN 0.68 mg/dL (0.20-1.00); TOTAL PROTEIN 5.5 g/dL (6.3-8.3)
--- NOTE | 2019-01-17 09:11 | NEPHROLOGY CONSULTATION ---
DATE: 01/16/2019 REASON FOR ADMISSION: Respiratory failure. REASON FOR CONSULTATION: Acute kidney injury. CONSULTING PHYSICIAN: Dr. Montalvo. HISTORY OF PRESENT ILLNESS: This is an 88-year-old female with a history of emphysema, COPD, who had been on Lasix secondary to fluid retention. Her labs had changed and her Lasix was discontinued. Subsequently, she had greater fluid retention and her Lasix was restarted. She came to the hospital on the day of admission secondary to shortness of breath. She was noted to be in atrial fibrillation and oxygen saturation in the 70s. The patient did have a CT pulmonary angiogram on the that revealed moderate pulmonary hypertension, moderate mitral regurgitation, aortic regurgitation and left ventricular ejection fraction of 40%. At that time, her creatinine was 1.1 since and has slowly risen and today is 1.7. The patient continues to make excellent urine. Her family is at the bedside. The patient has been made a DNR. They are not interested in aggressive measures. The patient states that she has not really been able to eat. She continues to be short of breath but denies any overt pain. PAST MEDICAL HISTORY: Emphysema COPD, coronary artery disease, atrial fibrillation, hypertension, dyslipidemia. PAST SURGICAL HISTORY: 1. CABG. 2. Cataract surgery. 3. Knee surgery. 4. Cholecystectomy. 5. Abdominal aortic aneurysm repair. ALLERGIES: Levaquin. HOME MEDICATIONS: Listed as: 1. Spironolactone. 2. Lopressor. 3. Zocor. 4. Losartan. 5. Aspirin. FAMILY HISTORY: Noncontributory. SOCIAL HISTORY: She lives with her daughter. She smoked into 15 years ago and had a greater than 50 year pack history of smoking prior. No ETOH or illicit drug use. REVIEW OF SYSTEMS: Shortness of breath. PHYSICAL EXAMINATION: Vital Signs: Temperature afebrile, pulse 76, respiratory rate 15, blood pressure 112/52. Intake 1.1 L. Output 2.2 L. General: This is an elderly, chronically ill- appearing female, resting in bed. She is awake and alert. She is able to answer questions. She is hard of hearing. HEENT: Normocephalic, atraumatic. LEAH. Oral mucosa moist. Neck: Supple without JVD. Cardiovascular: Irregularly irregular rhythm. No murmur. Pulmonary: She has equal excursion. She has some crackles bilaterally. Abdomen: Soft with positive bowel sounds. Genitourinary: Tolentino catheter. Extremities: Trace edema. Integumentary: Skin is pale, warm, and dry. She has multiple areas of ecchymoses noted. LABORATORY DATA: WBC of 13.8, hemoglobin 12.5. Sodium 143, potassium 3.3, CO2 21, BUN 33, creatinine 1.7 (1.4, 1.1). ASSESSMENT AND PLAN: Acute kidney injury in the setting of IV contrast. Urine studies and imaging has already been ordered. The patient does not have any absolute indication for intervention other than watchful monitoring at this time until I have the other results back. It is unlikely that even if the patient's renal function does not improve, the family would not want aggressive measures. They have made her DNR level 1 at this time secondary to her poor prognosis from her hypoxemic respiratory failure and decompensated heart failure secondary to her development of atrial fibrillation. Again. Check labs in the morning. Follow closely. Dictated by ALY Ovalle for Norbert Haddad MD cc: Norbert Haddad MD
[2019-01-17] MEDS: ASPIRIN PO SCH (09:36)
[2019-01-17] MEDS: ZYVOX 600 MG/D5W 600 MG/300 ML IVPB IV SCH ×2 (09:37→20:12)
[2019-01-17] MEDS: MEGACE LIQUID PO SCH ×2 (09:37→20:11)
--- NOTE | 2019-01-17 09:48 | PULMONOLOGY PROGRESS NOTE ---
DATE: 01/16/2019 SUBJECTIVE: The patient is awake, alert. She is attempting to get her "afternoon nap." She has no increased work of breathing. OBJECTIVE: Vital Signs: The patient has been afebrile for the last 24 hours. Blood pressure 123/66, heart rate 74, respiratory rate 15, oxygen saturation 100% on 4 L per nasal cannula. HEENT: Pupils are equal and reactive. Oropharynx appears clear. Neck: Supple. Chest: Reveals decreased breath sounds with crackles in the lung bases. Cardiac: S1-S2. Abdomen: Soft. Extremities: Reveal trace edema. LABORATORIES: Arterial blood gas reveals a pH of 7.47, pCO2 of 37, PO2 of 135 with a lactate of 1.0. Sodium 143, potassium 3.3, chloride 101, bicarbonate 27, BUN 33, creatinine 1.7. IMPRESSION: An 88-year-old with: 1. Systolic/multivalvular heart failure. 2. Pulmonary edema with radiographic improvement. 3. Chronic obstructive pulmonary disease. 4. Acute respiratory failure. DISCUSSION: 88-year-old with problems outlined above. She has had some improvement with diuresis, but has had worsening of renal function. PLAN: 1. Continue oxygen for hypoxemic respiratory failure. 2. Gentle diuresis as tolerated. 3. Agree with palliative care consult. 4. Prognosis is guarded to poor. cc: Augustus Vivas MD
[2019-01-17] MEDS: TYLENOL PO PRN ×2 (11:45→17:55)
--- NOTE | 2019-01-17 12:44 | Diag Imaging Result Doc PS360 ---
EXAM: CHEST-PORTABLE INDICATION: pneumonia TECHNIQUE: One view COMPARISON: 01/16/2019 FINDINGS: There are bilateral small pleural effusions. The effusion on the right has increased in size as compared to the previous study. The mild increased interstitial markings are approximately stable. No new consolidation is identified. Cardiac silhouette is stable. IMPRESSION: Increase in size of the small effusion on the right. Stable chest, otherwise. Electronically signed by Indra Hollins 01/17/2019 12:42 PM
--- NOTE | 2019-01-17 21:57 | CARDIOLOGY PROGRESS NOTE ---
DATE: 01/17/2019 SUBJECTIVE: Ms. Ponce denies any issues presently. She is not having any complaints, other than some mild anxiety overnight. She has no pain complaints. No nausea, vomiting. No abdominal pain. OBJECTIVE: The patient is afebrile. Heart rate 61, blood pressure 106/59. General: She is in no acute distress. Cardiovascular: She sounds to be in an irregular rhythm. She has no murmurs. She has no S3. No lower extremity edema. Chest: Sounds clear. She has no increased work of breathing. Abdomen: Soft. She has no abdominal tenderness. PERTINENT DATA: Her BUN and creatinine are 35 and 1.5, which is relatively stable over the last couple of days. Her hematocrit is 40. White count is 11.7. Her AST and ALT are 1230 and 13, respectively, which is markedly elevated compared to previous. Her albumin is 3.2. ASSESSMENT: Ms. Ponce is an 88-year-old female with heart failure as well as atrial fibrillation. She has a significant transaminitis presently. PLAN: I will not make any adjustments in her cardiac medications. She seems to be running a negative fluid balance over the last 24 hours and her hemodynamics seem to be doing well. One of her antibiotics has been changed and is presumed to be the possible cause of the significant transaminitis. cc: Jon Kolb MD
--- NOTE | 2019-01-17 21:58 | NEPHROLOGY PROGRESS NOTE ---
DATE: 01/17/2019 SUBJECTIVE: Patient resting in bed. She has been able to eat a little breakfast. No complaints overnight. OBJECTIVE: Vital signs: Temperature 97 degrees, pulse 60, respiratory rate 17, blood pressure 105/47. Intake 440, output 450 mL.General: This is an elderly female resting in bed. She is chronically ill-appearing but in no acute distress. HEENT: Normocephalic, atraumatic. Oral mucosa moist. Neck is supple. No JVD. Cardiovascular: Irregularly regular rhythm. No murmur. Pulmonary: Equal excursion. Decreased breath sounds. Abdomen is soft. Positive bowel sounds. : Tolentino catheter. Extremities: Trace edema. Integumentary: Skin is warm and dry. LABORATORY DATA: Sodium 137, potassium 3.7, CO2 is 26, creatinine 1.5 (1.7). ASSESSMENT AND PLAN: Acute kidney injury in the setting of intravenous contrast. Renal function has improved overnight. No indications for intervention other than her current treatment plan. We will follow labs while she is in the hospital. Dictated by ALY Ovalle for Norbert Haddad MD cc: Norbert Haddad MD
--- NOTE | 2019-01-17 23:39 | PROGRESS NOTE ---
DATE: 01/17/2019 SUBJECTIVE: The patient has not been eating at all. She states that she has absolutely no appetite. OBJECTIVE: Vital signs: Temperature 97.4 degrees, blood pressure 119/51, heart rate 65, respirations 20, O2 saturation 98% on 3 L nasal cannula.General: This is a chronically ill- appearing, cachectic female, lying in bed in no acute distress. Heart: S1, S2. Normal. Lungs: Equal air entry bilaterally. No wheezing. No rales. Abdomen: Positive bowel sounds. Soft, nontender, nondistended. Extremities: No edema, no cyanosis. Neurologic: The patient is alert and oriented. LABORATORY DATA: Sodium 137, potassium 3.7, chloride 99, CO2 is 26, BUN 35, creatinine 1.5, glucose 99, AST 1230, ALT 1313. DIAGNOSTIC DATA: Chest x-ray shows increase in the size of the right pleural effusion. ASSESSMENT AND PLAN: 1. Acute hypoxemic respiratory failure. Multifactorial. 2. Pulmonary edema. Improved. 3. Acute on chronic systolic congestive heart failure exacerbation. Improved. 4. Severe chronic obstructive pulmonary disease. Aware. Continue with supplemental oxygen and bronchodilator therapy. 5. Acute kidney injury on chronic kidney disease. Improved. 6. Severe protein calorie malnutrition. Continue with Megace and meal supplements. 7. Paroxysmal atrial fibrillation. Continue on Lopressor. Cardiology is following. 8. Anxiety disorder. Continue on Xanax. 9. Elevated transaminases. This is likely medication induced. We will discontinue the cefepime, since it can cause elevation in AST and ALT. We will repeat the liver function studies tomorrow. We will also check a hepatitis profile. 10. Disposition. The patient is currently a Do Not Resuscitate/Allow Natural level 1. Palliative Care has been consulted to discuss goals of care with the family and the patient. cc: Gisselle Montalvo MD MTDD
[2019-01-18] MEDS: TYLENOL PO PRN ×3 (00:03→18:00)
[2019-01-18] MEDS: DUONEB (A & A) INH SCH ×4 (03:17→19:05)
[2019-01-18] MEDS: LOPRESSOR PO SCH ×3 (03:20→20:07)
[2019-01-18 05:43] LABS: HEMATOCRIT 39.4 % (37.0-47.0); HEMOGLOBIN 13.2 g/dL (12.0-16.0); MCH 32.1 PG (27-31); MCHC 33.5 g/dL (33-37); MCV 95.9 FL (81-99); MPV 10.5 FL (7.4-10.4); RBC 4.11 XMIL (4.2-5.4); WBC 8.59 X1000 (4.8-10.8)
[2019-01-18 06:05] LABS: ALB/GLOB RATIO 1.3; CALCIUM 8.9 mg/dL (8.8-10.2); CREATININE 1.5 mg/dL (0.5-0.9); POTASSIUM 3.6 mmol/L (3.5-5.1); TOTAL BILIRUBIN 0.56 mg/dL (0.20-1.00); TOTAL PROTEIN 5.3 g/dL (6.3-8.3)
[2019-01-18] MEDS: ASPIRIN PO SCH (10:09)
[2019-01-18] MEDS: ZYVOX 600 MG/D5W 600 MG/300 ML IVPB IV SCH ×2 (10:10→20:07)
[2019-01-18] MEDS: MEGACE LIQUID PO SCH (10:10)
--- NOTE | 2019-01-18 10:12 | PULMONOLOGY PROGRESS NOTE ---
DATE: 01/17/2019 SUBJECTIVE: The patient is awake, alert, and conversant. Family is at the bedside. She reports she is doing well. She denies shortness of breath. OBJECTIVE: Vital Signs: The patient has been afebrile for the last 24 hours. Blood pressure 105/72, heart rate 91, respiratory rate 15, oxygen saturation 99%. HEENT: Pupils are equal and reactive. Oropharynx appears clear. Neck is supple. Chest reveals diminished breath sounds at both lung bases. Cardiac Examination: Irregular rate. Normal S1, normal S2. Abdomen is soft. Extremities reveal trace to 1+ peripheral edema. Laboratories: Sodium 137, potassium 3.7, chloride 99, bicarb 26, BUN 35, creatinine 1.5. White blood count 11.74, hemoglobin 13.1, platelet count 143,000. Chest x-ray reveals small bilateral effusions with slight increase on the right side. IMPRESSION: An 88-year-old with: 1. Systolic/multivalvular heart failure. 2. Pulmonary edema with small effusions. 3. Chronic obstructive pulmonary disease. 4. Acute renal insufficiency following contrast dye. PLAN: 1. Continue oxygen for acute hypoxic respiratory failure. 2. Hold diuretics pending improvement of renal function and blood pressure. 3. Overall prognosis is guarded. cc: Augustus Vivas MD
[2019-01-18 11:30] LABS: HEPATITIS PROFILE ACUTE SEE COMMENTS
--- NOTE | 2019-01-18 16:37 | PROGRESS NOTE ---
DATE: 01/18/2019 SUBJECTIVE: The patient is more awake and alert. She states that she has a little more strength today. OBJECTIVE: Vital Signs: Temperature 97.3, blood pressure 134/62, heart rate 69, respirations 18. O2 sats 99% on 3 L nasal cannula. General: This is a chronically ill-appearing elderly female sitting at the edge of the bed in no acute distress. Heart: S1, S2 normal. Regular rate and rhythm. Lungs: Equal air entry bilaterally. No wheezing, no rales. No rhonchi. Abdomen: Positive bowel sounds. Soft, nontender, nondistended. Extremities: No edema. No cyanosis. Neurologic: The patient is alert and oriented x 3. LABS: White blood cell count 8.5, hemoglobin 13, hematocrit 39, platelets 144,000. BUN 32, creatinine 1.5, sodium 137, potassium 3.6, chloride 101, CO2 24, AST 566, ALT 889, albumin 3. ASSESSMENT AND PLAN: 1. Acute hypoxemic respiratory failure. Multifactorial. The patient will likely require oxygen upon discharge. The O2 requirements have decreased. 2. Pulmonary edema. Improved. 3. Acute on chronic systolic CHF exacerbation. Improved. Continue on the current medications. 4. Severe COPD. Continue with bronchodilator therapy and supplemental oxygen. 5. Acute kidney injury on chronic kidney disease. Improved. 6. Severe protein calorie malnutrition. The patient has been started on Marinol. Continue with meal supplements. 7. Paroxysmal atrial fibrillation. The patient is rate controlled. Continue on Lopressor. 8. Transaminitis. Likely medication induced. Improved. 9. Anxiety disorder. Continue on Xanax as needed. 10. Disposition. The patient is currently a DNR level 1. Palliative Care will meet with the patient and her family tomorrow. cc: Gisselle Montalvo MD [facility]
[2019-01-18] MEDS: MARINOL PO SCH (20:07)
[2019-01-18] MEDS: XANAX PO PRN (20:07)
[2019-01-18] MEDS: NORCO-5 PO PRN (20:42)
[2019-01-19] MEDS: DUONEB (A & A) INH SCH ×6 (03:17→23:37)
[2019-01-19] MEDS: LOPRESSOR PO SCH ×3 (03:22→20:06)
[2019-01-19] MEDS: NORCO-5 PO PRN ×3 (03:22→22:31)
[2019-01-19 05:40] LABS: HEMATOCRIT 41.3 % (37.0-47.0); HEMOGLOBIN 13.5 g/dL (12.0-16.0); MCH 31.4 PG (27-31); MCHC 32.7 g/dL (33-37); MPV 10.4 FL (7.4-10.4); RBC 4.3 XMIL (4.2-5.4); RDW 13.5 % (11.5-14.5); WBC 8.15 X1000 (4.8-10.8)
[2019-01-19 05:53] LABS: CALCIUM 8.4 mg/dL (8.8-10.2); CREATININE 1.5 mg/dL (0.5-0.9); POTASSIUM 3.9 mmol/L (3.5-5.1)
--- NOTE | 2019-01-19 07:22 | Diag Imaging Result Doc PS360 ---
EXAM: CHEST-1 VIEW 01/19/2019 HISTORY: copd TECHNIQUE: AP portable at 0605 COMMENT: There are bilateral pleural effusions. This has improved slightly since the previous study of 01/17/2019. There continues to be cardiomegaly and increased central pulmonary vascularity. IMPRESSION: Improved pleural effusions. Electronically signed by Kings Flanagan 01/19/2019 7:20 AM
[2019-01-19] MEDS: ZYVOX 600 MG/D5W 600 MG/300 ML IVPB IV SCH ×2 (08:14→20:07)
[2019-01-19] MEDS: ASPIRIN PO SCH (08:15)
[2019-01-19] MEDS: MARINOL PO SCH ×2 (08:15→20:05)
--- NOTE | 2019-01-19 08:52 | CARDIOLOGY PROGRESS NOTE ---
DATE: 01/19/2019 CHIEF COMPLAINT: Shortness of breath. SUBJECTIVE: Ms. Ponec is breathing much more comfortably. She denies having any chest pain. She is more with it in general. Telemetry shows persistent atrial fibrillation. The rate is better controlled. OBJECTIVE: Vital signs: Blood pressure is 131/60, temperature is 98.5, pulse 71, respirations 12. She is awake, alert, elderly, in no distress. HEENT is unremarkable. Chest sounds clear to auscultation and percussion. Heart sounds are slightly irregular. Abdomen is nontender. Extremities showed no edema. Neurologic: Follows commands, moves all 4 extremities. DIAGNOSTIC DATA: Hemoglobin is 13.5, white cell count is 8150. Sodium is 137, potassium 3.9, BUN is 28, creatinine 1.5. Chest x-ray shows improved pleural effusions. IMPRESSION: 1. The patient presented with congestive heart failure that appeared to be both systolic and diastolic, decompensated. 2. Severe coronary heart disease, previous bypass surgery. 3. Hyperlipidemia. 4. History of hypertension. 5. General frailty. RECOMMENDATIONS: At this time, we will continue present approach. She is definitely improving. We will see how things go over the course of the ensuing hours, and we will take it from there. cc: Chuy Mcleod MD
[2019-01-19] MEDS: XANAX PO PRN (13:05)
--- NOTE | 2019-01-19 13:45 | NEPHROLOGY PROGRESS NOTE ---
DATE: 01/19/2019 SUBJECTIVE: Patient resting in bed. She is awake and alert and talkative. OBJECTIVE: Vital Signs: Temperature 98.5 degrees, pulse 63, respiratory rate 17, blood pressure 117/62. Intake 725 mL. Output 200 mL plus urine noted in the urometer. General: Elderly chronically ill-appearing female, in no acute distress. HEENT: Normocephalic, atraumatic. PERR L. Neck: Supple without JVD. Cardiovascular: Irregularly irregular. Pulmonary: No increased work of breathing. No rales or rhonchi. Abdomen: Soft, positive bowel sounds. : Adequate output. Extremities: No edema Integumentary: Skin is warm and dry. LAB DATA: Sodium 137, potassium 3.9, CO2 25, BUN 28, (32, 35), creatinine 1.5 unchanged over 3 days. IMAGING: Improved pleural effusions. ASSESSMENT AND PLAN: 1. Acute kidney injury secondary to IV contrast. Her creatinine really has not changed over the weekend although her BUN has been improving daily. Urine output has been adequate. She does have multiple voids that have not been measured. Continue to follow along nothing addition to add from a renal perspective. 2. Congestive heart failure. Systolic diastolic with severe coronary artery disease. Plan is to meet with palliative care today. Dictated by ALY Ovalle for Norbert aHddad MD Data reviewed, discussed with Gudelia Sparrow on 01/19/19. I agree with the above assessment and plan of care. cc: Norbert Haddad MD [facility]
--- NOTE | 2019-01-19 17:12 | PROGRESS NOTE ---
DATE: 01/19/2019 SUBJECTIVE: The patient is awake and alert. She states that she feels a lot stronger today. She is still not eating much. OBJECTIVE: Vital Signs: Temperature 98.4 degrees, blood pressure 117/47, heart rate 74, respirations 22, O2 saturation is 100% on 3 L nasal cannula. General: This is a chronically ill- appearing female lying in bed in no acute distress. Heart: S1, S2 normal. Lungs: Clear to auscultation bilaterally. No wheezing, no rales. Abdomen: Positive bowel sounds. Soft, nontender, nondistended. Extremities: No edema, no cyanosis. Neurologic: The patient is alert and oriented x3. LABS: White blood cell count 8.1, hemoglobin 13, hematocrit 41, platelets 145,000. Sodium 137, potassium 3.9, chloride 100, CO2 25, BUN 28, creatinine 1.5. ASSESSMENT AND PLAN: 1. Acute hypoxemic respiratory failure. Continue to try and wean the patient off of supplemental oxygen. 2. Acute on chronic systolic and diastolic congestive heart failure exacerbation. Improved. 3. Severe chronic obstructive pulmonary disease. Aware. Continue with supplemental oxygen and bronchodilator therapy. 4. Acute kidney injury on chronic kidney disease. Stable. 5. Protein calorie malnutrition. Continue on Marinol and meal supplementation. 6. Atrial fibrillation. Continue on Lopressor. 7. Transaminitis. Will continue to monitor closely for improvement. This was likely medication induced. 8. Anxiety disorder. Continue on Xanax as needed. 9. Disposition. Physical therapy is scheduled to work with the patient today. Will consult with [employer] for discharge planning. cc: Gisselle Montalvo MD
[2019-01-20] MEDS: XANAX PO PRN ×2 (02:18→18:11)
[2019-01-20] MEDS: DUONEB (A & A) INH SCH ×4 (03:08→19:59)
[2019-01-20] MEDS: LOPRESSOR PO SCH ×3 (03:43→20:38)
[2019-01-20 06:04] LABS: HEMOGLOBIN 13.9 g/dL (12.0-16.0); MCH 32.9 PG (27-31); MCHC 33.9 g/dL (33-37); MCV 96.9 FL (81-99); MPV 10.5 FL (7.4-10.4); RBC 4.23 XMIL (4.2-5.4); RDW 13.6 % (11.5-14.5); WBC 9.4 X1000 (4.8-10.8)
[2019-01-20 06:27] LABS: ALB/GLOB RATIO 1.6; ALBUMIN 3.6 g/dL (3.5-5.0); DIRECT BILIRUBIN 0.2 mg/dL (0.00-0.20); TOTAL BILIRUBIN 0.53 mg/dL (0.20-1.00); TOTAL PROTEIN 5.9 g/dL (6.3-8.3)
[2019-01-20 06:31] LABS: CALCIUM 9.4 mg/dL (8.8-10.2); CREATININE 1.3 mg/dL (0.5-0.9); POTASSIUM 3.9 mmol/L (3.5-5.1)
--- NOTE | 2019-01-20 08:01 | PULMONOLOGY PROGRESS NOTE ---
DATE: 01/19/2019 SUBJECTIVE: The patient is awake, alert, and conversant. She reports her breathing continues to improve but feels better when she uses her fan. OBJECTIVE: The patient has been afebrile for the last 24 hours. Blood pressure 123/48, heart rate 75, respiratory rate 18, oxygen saturation 100% on 3 L per nasal cannula. HEENT: Pupils are equal and reactive. Oropharynx is clear. Neck is supple. Chest reveals crackles in the lung bases. Cardiac Examination: S1 is irregular. Abdomen is soft. Extremities reveal trace edema. Laboratories: Chest x-ray reveals cardiomegaly with decreasing pleural effusions. IMPRESSION: An 88-year-old with: 1. Systolic/valvular heart failure. 2. Pulmonary edema. 3. Pleural effusions. 4. Chronic obstructive pulmonary disease. 5. Acute renal insufficiency following contrast dye. DISCUSSION: An 88-year-old with problems outlined above. The patient does appear to be improving. Pleural effusions are decreasing. PLAN: 1. Continue oxygen for hypoxemic respiratory failure. 2. Continue to observe off diuretics, given the clinical improvement. cc: Augustus Vivas MD
[2019-01-20] MEDS: MARINOL PO SCH ×2 (08:37→20:41)
[2019-01-20] MEDS: ASPIRIN PO SCH (08:37)
[2019-01-20] MEDS: ZYVOX 600 MG/D5W 600 MG/300 ML IVPB IV SCH ×2 (08:37→20:41)
--- NOTE | 2019-01-20 09:12 | PROGRESS NOTE ---
DATE: 01/20/2019 SUBJECTIVE: Ms. Ponce presented on 01/15/2019 with shortness of breath. She is seen by Dr. Radha Robin. Apparently, they were in the process of trying to see if she is eligible for home hospice care, and then she became short of breath and came here on 01/15/2019. This is an 88-year- old with progressive shortness of breath over the last 2 weeks. Her primary care doctor is Dr. Radha Robin, who she saw on Saturday, put her back on some Lasix. She had an x-ray done a couple days before, and was presumably normal. Became extremely short of breath, could not lie flat, very anxious, very uncomfortable. PAST MEDICAL HISTORY: Includes: 1. Atrial fibrillation, which sounds like it is chronic. 2. Hypertension. 3. Hyperlipidemia. 4. Coronary artery disease. 5. CABG bypass with AAA repair as well in the past. 6. Her vital signs were stable when she arrived. PAST SURGICAL HISTORY: Status post CABG, cataract surgery, knee surgery, cholecystectomy, and AAA. ADMISSION DIAGNOSES: 1. Shortness of breath, unknown etiology. Wanted to rule out a pulmonary embolism, so admitted to the hospital. 2. History of atrial fibrillation. Ventricular rate was apparently fairly well controlled. Was given some intravenous metoprolol. 3. Alkalosis on arrival. 4. Nonsymptomatic urinary tract infection. There is sediment in the urine. 5. Hypertension and hyperlipidemia. Today, feels much better. She feels a little stronger. OBJECTIVE: Vital Signs: Temp is 97 degrees, pulse 64, respirations 15, blood pressure 154/73. HEENT: Pupils are equal and round. Lungs: Clear in all lung vega. Cardiovascular: Regular rhythm and rate without murmur or S3. Abdomen: Soft. Skin: Warm and dry. Urine output 2200 mL. ASSESSMENT AND PLAN: 1. Systolic multivalvular heart failure with underlying pulmonary edema and small effusions, underlying chronic obstructive pulmonary disease. Continue oxygen. 2. Acute hypoxemic respiratory failure. I have held diuretics pending improvement of renal function. 3. Acute on chronic systolic heart failure, which improved. 4. Severe chronic obstructive pulmonary disease exacerbation. Continue supplemental oxygen and bronchodilator therapy. 5. Acute kidney injury, which is improved. 6. Protein calorie malnutrition. Aware. She is on Megace and some supplements. 7. Paroxysmal atrial fibrillation. Continue Lopressor. 8. Anxiety disorder, on Xanax. She seems to be improving. REVIEW OF ORDERS: I do not see any change. She has been taken off the Megace, and she is on the Marinol 2.5 mg b.i.d., aspirin 300 mg a day, Xanax 0.5 mg every 8 hours, Lopressor 12.5 mg every 8 hours, linezolid 600 mg IV every 12 hours. LABORATORY DATA: Review of her lab from today: White count 9400, hematocrit is 41, platelet count 162,000. Sodium 137, potassium 3.9, chloride 99, BUN 23, creatinine 1.3. AST and ALT have come down. Originally, AST was 1200, ALT was 1300. It is down to 181 and 553 respectively, so transaminases are diminishing. Serum creatinine is down to 1.3. She has physical therapy already initiated. I will get Occupational Therapy involved as well. cc: Caleb Morales MD
[2019-01-20] MEDS: TYLENOL PO PRN (13:47)
[2019-01-20] MEDS: NORCO-5 PO PRN (20:38)
--- NOTE | 2019-01-20 22:36 | NEPHROLOGY PROGRESS NOTE ---
DATE: 01/20/2019 TIME SEEN: 0745. SUBJECTIVE: Patient is sitting up in bed. He has no complaints this morning. OBJECTIVE: Vital: Temperature 97.4, pulse 94, respiratory rate 18, blood pressure 128/47. Intake 840 mL, output 1.6 L. General: This is an elderly female resting in bed. She is awake and alert. She does not appear in acute distress today. HEENT: Normocephalic, atraumatic. LEAH. Neck: Supple without JVD. Cardiovascular: Irregularly irregular rhythm. Pulmonary: She continues with crackles bilaterally. Abdomen: Soft. Positive bowel sounds. Genitourinary: Continues with Tolentino catheter. Extremities: Trace edema. Integumentary: Skin pale, warm, and dry. DIAGNOSTIC DATA: Chest x-ray, decrease in pleural effusion. ASSESSMENT AND PLAN: Acute kidney injury secondary to intravenous contrast. Renal function has continued to improve. She is down to 3 at this time with her creatinine. Her baseline creatinine is 1.1. We have nothing further to add from a renal perspective so will sign off. If we can be of further assistance, please do not hesitate to contact us. Dictated by ALY Ovalle for Norbert Haddad MD Face to face encounter, data reviewed, discussed with Gudelia Sparrow on 01/20/19. I agree with the above assessment and plan of care. cc: Norbert Haddad MD [facility]
[2019-01-21] MEDS: DUONEB (A & A) INH SCH ×3 (03:06→09:57)
[2019-01-21] MEDS: LOPRESSOR PO SCH (04:18)
--- NOTE | 2019-01-21 05:15 | PULMONOLOGY PROGRESS NOTE ---
DATE: 01/20/2019 SUBJECTIVE: Patient is awake, alert, and conversant. She reports she feels better and does not have shortness of breath today. OBJECTIVE: Vital signs: Patient has been afebrile for the last 24 hours. Blood pressure 130/64, heart rate 90, respiratory rate 20, oxygen saturation 100%. HEENT: Pupils are equal and reactive. Oropharynx appears clear. Neck: Supple. Chest: Reveals decreased breath sounds both lung bases. Cardiac: S1, S2. Abdomen: Soft. Extremities: Without edema. LABORATORIES: Sodium 137, potassium 3.9, chloride 99, bicarbonate 24, BUN 23, creatinine 1.3. White blood count 9.40, hemoglobin 13.9, platelet count 162,000. IMPRESSION: An 88-year-old with. 1. Systolic and valvular heart failure. 2. Pulmonary edema. 3. Pleural effusions 4. Chronic obstructive pulmonary disease. 5. Acute renal insufficiency following contrast dye. Her kidney function continues to improve. PLAN: 1. Followup chest x-ray tomorrow. 2. Consider restarting diuretics. 3. Agree with plans for palliative care discussion. cc: Augustus Vivas MD
[2019-01-21 05:59] LABS: CALCIUM 9.3 mg/dL (8.8-10.2); CREATININE 1.1 mg/dL (0.5-0.9); POTASSIUM 3.8 mmol/L (3.5-5.1)
--- NOTE | 2019-01-21 07:17 | Diag Imaging Result Doc PS360 ---
EXAM: CHEST-PORTABLE 01/21/2019 HISTORY: abnormal exam TECHNIQUE: AP portable at 0555 COMMENT: The heart size is enlarged. There is less pleural fluid on the left than on 01/19/2019. Otherwise are has been no appreciable change. IMPRESSION: Improved left pleural effusion. Cardiomegaly pulmonary edema and right pleural effusion. Electronically signed by Kings Flanagan 01/21/2019 7:15 AM
[2019-01-21] MEDS ORDERED: LOPRESSOR PO SCH (08:06)
[2019-01-21 08:11] VITALS: BP 140/82
[2019-01-21] MEDS: XANAX PO PRN (08:22)
[2019-01-21] MEDS: ZYVOX 600 MG/D5W 600 MG/300 ML IVPB IV SCH (08:22)
[2019-01-21] MEDS: MARINOL PO SCH (08:22)
[2019-01-21] MEDS ORDERED: ASPIRIN PO SCH (09:00)
[2019-01-21] MEDS ORDERED: ALTACE PO SCH (09:00)
[2019-01-21] MEDS ORDERED: ALDACTONE PO SCH (09:00)
--- NOTE | 2019-01-21 09:52 | DISCHARGE SUMMARY ---
ADMISSION DATE: 01/15/2019 DISCHARGE DATE: 01/21/2019 HISTORY: This is an 88-year-old who had progressive shortness of breath for the last 2 weeks, came into the hospital on 01/15/2019. She saw her primary care physician, Dr. Radha Robin, the Saturday before, was taken off of her Lasix, saw her again the following Saturday, put her back on the Lasix, had x-ray and blood work on Saturday, which was reported to be normal. The day of admission, she became extremely short of breath, felt she could not lie flat. Denied any type of chest pain, very anxious, could not sit still on examination, very uncomfortable. PAST MEDICAL HISTORY: Includes atrial fibrillation, hypertension, hyperlipidemia, coronary artery disease status post CABG and AAA repair. VITAL SIGNS: Stable. LABORATORY DATA: Grossly normal, other than hyperventilating and blowing off a lot of CO2, which resulted in respiratory alkalosis. She was oxygenating well, but again worrisome that she looked very uncomfortable. IMAGING: X-ray showed possible right upper lobe pneumonia, worsened right pleural effusion. CT scan and angiogram of the chest did not reveal any dissection or pulmonary embolus. Echocardiogram with Doppler done on 01/15/2019: Minimal sclerosis of trileaflet valve described the aortic valve opening. Peak gradient was 17 mmHg. Mild aortic regurgitation. Tricuspid and mitral valve without evidence of structural abnormality. PA pressure was about 50 mmHg, suggesting moderate pulmonary hypertension. Left ventricle dimensions were normal. Ejection fraction was 40%. There is some hypokinesis of the basilar inferolateral region, left ventricle. No pericardial effusion. Cardiology was consulted. Pulmonary arteriogram on 01/14/2019: No evidence of pulmonary emboli, cardiomegaly, mild pulmonary edema, granulomata, nonspecific pulmonary nodules, and underlying COPD. PAST SURGICAL HISTORY: Status post CABG, status post cataract surgery, status post knee surgery, cholecystectomy, and AAA repair. SOCIAL HISTORY: She lives with her daughter. ADMISSION DIAGNOSES: 1. Shortness of breath, unknown etiology. 2. Underlying atrial fibrillation with rapid ventricular rate, which reverted back to normal sinus rhythm. 3. Respiratory alkalosis. 4. Nonsymptomatic urinary tract sediment, treated as possible infection. 5. Hypertension. 6. Hyperlipidemia. IMPRESSION: 1. Decompensation of congestive heart failure, may relate to development of atrial fibrillation and rapid response. 2. Severe coronary artery disease, previous coronary bypass surgery. 3. Stable angina pectoralis pattern in the recent past. 4. Chronic obstructive pulmonary disease. [place] liver enzymes may have been just hepatic congestion. Pulmonary was consulted. [place] respiratory failure was most likely due to a combination of both heart failure, systolic and multivalvular, and emphysema and chronic obstructive pulmonary disease. Chest x-ray on 01/16/2019: Slightly improved pulmonary edema, bilateral pleural effusions, and cardiomegaly. Renal ultrasound on 01/16/2019: Mildly increased renal cortical echotexture with nonspecific indicator of medical renal disease. Nephrology was asked to see, Dr. Haddad. Acute kidney injury in the setting of IV contrast. Urine studies and imaging have already been ordered. Does not have any absolute indication for intervention, and want to continue to watch and monitor. Renal function seemed to improve. The family and patient wanted to go home, and they wanted to go on hospice. DISCHARGE DIAGNOSES: 1. 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 2. Paroxysmal atrial fibrillation. Rate appears controlled, and seems to go back into sinus rhythm. 3. Pleural effusions, pulmonary edema. 4. Chronic obstructive pulmonary disease. 5. Acute renal insufficiency following contrast dye, underlying chronic kidney disease as well. The family would like her to go home on hospice care. DISCHARGE MEDICATIONS: She will take Tylenol 650 mg every 6 hours p.r.n., DuoNebs every 6 hours p.r.n. The Xanax seems to help. She did have a good amount of anxiety. She gets 0.5 mg p.o. every 8 hours p.r.n., aspirin 81 mg a day. She was taking Marinol 2.5 mg b.i.d. to help with appetite. [place] 5 every 6 hours p.r.n. We had her on linezolid 600 mg IV every 12 hours, which we will stop, and Lopressor 25 mg p.o. every 8 hours, Altace 2.5 mg daily, Aldactone 12.5 mg daily, FOLLOWUP: She will follow up with her primary care, and be on hospice. Arranging for O2 at home. Her doctor is Dr. Radha Robin. cc: Caleb Morales MD
[2019-01-21] MEDS: TYLENOL PO PRN (12:13)
--- NOTE | 2019-01-21 13:33 | CARDIOLOGY PROGRESS NOTE ---
DATE: 01/21/2019 CHIEF COMPLAINT: Shortness of breath and irregular heartbeat. SUBJECTIVE: Ms. Ponce continues to improve gradually. Her chest x-ray from today indicates an improved left pleural effusion. There is still some pulmonary congestion. OBJECTIVE: Vital Signs: Blood pressure is 140/82, temperature 97.5, pulse 96, and respirations 25. General: She is awake, alert, oriented, elderly, and in no distress. She is in better spirits. Respiratory: The chest reveals clear breath sounds on the right side and diminished at the base on the left. Cardiac: Heart sounds are irregularly irregular. She does have a systolic murmur. Telemetry shows atrial fibrillation with occasional rapid rate. Gastrointestinal: Her abdomen is nontender. Extremities: The extremities show no edema. Neurological: She follows commands and moves all extremities. LABORATORY DATA: Blood work today: Sodium is 139, potassium 3.8, BUN 23, and creatinine 1.1. IMPRESSION: 1. Patient who presented with congestive heart failure. This was probably related to conversion to atrial fibrillation with rapid response. 2. History of severe coronary artery disease, previous bypass surgery. 3. Stable angina pectoris. 4. Chronic obstructive pulmonary disease. 5. History of hypertension. 6. Low body mass index, undernourished with significant frailty. RECOMMENDATIONS: At this time I would suggest to add ramipril and titrate metoprolol. I would also suggest to initiate spironolactone low dose. She needs to be monitored closely to make sure that her potassium remains within adequate range. At any rate she continues to improve. She may be getting ready for discharge perhaps within the next 24 hours. I will discuss with Dr. Caleb Morales regarding that matter. cc: Chuy Mcleod MD
== END 2019-01-21 14:10 | disposition hospice, home (50) | DRG 291 ==
LOC: ED 18:20 → SUATTDRO 01-15 01:07 → EDIPHOLD 01-15 01:07 → 3S 01-15 03:03
PROVIDERS: ATTEND Emergency Medicine
CPT/HCPCS: 71010; 71020; 71045; 71046; 71275; 76770; 80048; 80053; 80074; 80076; 81001; 82550; 82570; 82607; 82784; 82805; 83605; 83880; 83935; 84145; 84156; 84300; 84439; 84443; 84484; 84540; 85025; 85027; 85610; 85651; 85730; 86140; 87040; 87088; 87205; 93005; 93010; 93306; 94640; 94761; 94799; 96361; 96365; 96366; 96368; 96372; 96375; 96376; 97116; 97162; 97530; 99285; 99291; A9270; J0456; J0692; J0696; J1160; J1630; J1940; J2020; J2060; J7030; Q9967; S0179